=== PATIENT | male | born 1945 | race Caucasian/White ===

== ENCOUNTER 2017-03-26 21:41 | Emergency (ER) | payer MEDICARE ==
[~2017-03-26] VITALS: Ht 172.7 cm; Wt 92.1 kg
[~2017-03-26 21:41] MED LIST: EPINEPHrine SYRINGE 1 MG/10 ML SYRINGE ONE; SODIUM BICARB ADULT 8.4% 50 MEQ/50 ML DISP.SYRIN. ONE
--- NOTE | 2017-03-27 01:55 | ED.ADGEN ---
Adult General HPI HPI Patient is a 71-year-old man, who presents via EMS as a CODE BLUE in cardiopulmonary arrest. Per EMS report, they were called the patient's home, by the patient's , who stated the patient had been exhibiting worsening shortness of breath and difficulty breathing over short period of time, upon arrival of EMS patient was noted to be in cardiopulmonary arrest. Patient's stated that he had arrested approximately a few minutes prior to their arrival on scene. She had not initiated CPR at that time. CPR was initiated by EMS, who state the patient was in PEA at that time. Continuous CPR was administered, patient was intubated, and total 4 rounds of epinephrine were administered route to the emergency department. Patient's Accu-Chek was 330. On arrival to the emergency department, CPR was continued, patient was noted to be in PEA on first rhythm check. Patient's family is en route to the emergency department per EMS report. No additional information is available at this time regarding patient's medical history, except that the patient was recently discharged from a cancer treatment center. Review of Systems Review of Systems Unable to assess secondary to clinical condition. Physical Exam Physical Exam Constitutional: Well developed, well nourished, pale, skin is mottled, in cardiopulmonary arrest, ET tube in place, receiving bagged ventilations and chest compressions. HENT: Normocephalic, atraumatic, bilateral external ears normal, oropharynx moist, no oral exudates, nose normal. [] Eyes: Pupils are 3 mm and equal bilaterally, fixed and dilated, conjunctiva pale , no discharge. [] Neck: Normal range of motion, no tenderness, supple, no stridor. [] Cardiovascular: Good pulses palpated with CPR in progress, patient with no spontaneous cardiac activity. Lungs & Thorax: Chest rise noted with bagged ventilations, no spontaneous respirations. Abdomen: Abdomen is slightly distended, obese, no masses or abdomen allergies palpated. Skin: Skin is slightly cool, dry, pale, no erythema or rashes identified.] Back: No step-offs or deformities identified. Extremities: Patient with mild edema bilaterally, no signs of trauma identified. Neurologic: Patient with a GCS of 3. EKG EKG [] Radiology/Procedures Radiology/Procedures [] Course & Med Decision Making Course & Med Decision Making Pertinent Labs and Imaging studies reviewed. (See chart for details) At time of arrival the emergency department, patient has been down for more than 35 minutes per EMS report. Patient remains in PEA on initial pulse check, dose of epinephrine and bicarbonate administered in the ED. Bedside ultrasound reveals near-total cardiac standstill. No evidence of tamponade or other reversible etiology. Patient with fixed pupils as stated, is slightly cool to touch despite active and effective CPR and bagging. Oxygen saturation is 78% on 100% bag respirations, with good chest rise. On second pulse check, without change in cardiac activity after administration of additional round of epinephrine, and bicarbonate, with patient remaining in pulseless electrical activity, resuscitative efforts were discontinued due to futility. We did attempt to obtain i-STAT laboratory studies, however due to poor peripheral perfusion, consistent with patient's prolonged downtime and irreversible course , we were unable to obtain an adequate sample. Patient's and additional family members did arrive in the emergency department, and I did inform them of the patient's . Patient's family at bedside with patient, and did provide additional information including the patient's primary care provider, Dr. Jackson, and did name a home. I spoke with Dr. Jackson, and informed him of this patient's , he states the patient had advanced esophageal cancer, along with CAD and COPD. He states that he will certify the , and indicates that he believes, locations due to esophageal cancer resulted in the patient's . No concern for suspicious or indications for autopsy. Export Specialist from [facility] presented to the emergency department at family request, and transported the body to the home. Final Impression Final Impression [] Problems: Dragon Disclaimer Dragon Disclaimer This electronic medical record was generated, in whole or in part, using a voice recognition dictation system. Departure: Impression: Primary Impression: Cardiopulmonary arrest Disposition: 20 Condition: CAITLYNMARKY Brunilda DO Mar 27, 2017 01:55
[2017-03-27] MEDS ORDERED: ALLO300T PO (05:19)
[2017-03-27] MEDS ORDERED: TORS20TA2 PO (05:19)
[2017-03-27] MEDS ORDERED: FLUT1BLS IH (05:19)
[2017-03-27] MEDS ORDERED: NITR0.4T SL (05:19)
[2017-03-27] MEDS ORDERED: OMEP20TA63 PO (05:19)
[2017-03-27] MEDS ORDERED: CARV12.52 PO (05:19)
[2017-03-27] MEDS ORDERED: ATOR40TA59 PO (05:19)
[2017-03-27] MEDS ORDERED: OMEP40CA5 PO (05:19)
[2017-03-27] MEDS ORDERED: ASPI-630 PO (05:19)
== END 2017-03-26 21:47 | disposition expired ==
LOC: ER 21:41 → EDBD 21:41 → ER 21:47
DX: I46.9 Cardiac arrest, cause unspecified (principal)
CPT/HCPCS: 92950; 99285; J0171